=== PATIENT | male | born 1940 | race Caucasian/White ===

== ENCOUNTER → 2016-11-25 | Outpatient (CLI) | payer OTHER ==
[~2016-11-25] MED LIST: ASPEC325 PO; LOSA25TA18 PO; METO-217 PO; SIMV40TA4 PO
--- NOTE | 2016-12-02 08:56 | CODING QUERY MEDICAL NECESSITY ---
SUPPORTING DIAGNOSIS NEEDED A supporting diagnosis is required for the test/procedure performed on this patient in order for us to be reimbursed by the patient's insurance. Please provide a supporting diagnosis for the following test/procedure listed below next to the test name along with your signature. *If there is no additional diagnosis for this patient that would support the following test/procedure please document that below next to the test/procedure. Test(s)/Procedure(s) that require a supporting diagnosis: DOS 11/25 * PSA DIAGNOSIS: Provider Signature: Date: Thank you Elisabet Pineda Health Information Management Once completed, please kindly fax back to [phone] For questions please call [phone]
== END | disposition home or self-care (01) ==
LOC: C.LABBFT 10:32
PROVIDERS: ATTEND Internal Medicine
DX: N52.9 Male erectile dysfunction, unspecified (principal); R97.20 Elevated prostate specific antigen [PSA]

== ENCOUNTER → 2017-06-01 | Outpatient (CLI) | payer OTHER ==
[2017-06-01 12:12] LABS: BASO % 0.4 %; BASO ABS # 0.03 K/uL (0-0.2); COMPLETE YES; EOS % 4.6 %; HEMATOCRIT 44.1 % (42-52); IG% 0.6 %; LYMPH % 28.1 %; LYMPH ABS # 1.94 K/uL (1.2-3.4); MEAN CELL VOLUME 96.1 fL (80-100); MEAN CORPUSCULAR HEMOGLOBIN 31.6 pg (25-34); MEAN CORPUSCULAR HGB CONC 32.9 g/dl (32-36); MEAN PLATELET VOLUME 9.8 fL (7.4-10.4); MONO % 5.9 %; NEUT % 60.4 %; PLATELET COUNT 240 K/uL (130-400); RED BLOOD COUNT 4.59 M/uL (4.7-6.1); WHITE BLOOD COUNT 6.91 K/uL (4.8-10.8)
[2017-06-01 12:22] LABS: ALT/SGPT 31 U/L (12-78); BLOOD UREA NITROGEN 18 mg/dl (7-18); BUN/CREATININE RATIO 17.5 (10-20); CARBON DIOXIDE 25 mmol/L (21-32); CHLORIDE 106 mmol/L (98-107); CHOLESTEROL 134 mg/dl (0-200); GLUCOSE 97 mg/dl (70-99); SODIUM 140 mmol/L (136-145); TRIGLYCERIDES 148 mg/dl (0-150); VERY LOW DENSITY LIPOPROT CALC 30 mg/dl
[2017-06-01 12:27] LABS: ALB/GLOB RATIO 1.1 (0.9-2); ALKALINE PHOSPHATASE 91 U/L (45-117); AST/SGOT 21 U/L (15-37); CHOLESTEROL/HDL RATIO 3.5; HDL CHOLESTEROL 38 mg/dl; LDL CHOLESTEROL CALCULATED 66 mg/dl
[2017-06-01 12:32] LABS: URINE APPEARANCE CLEAR (CLEAR); URINE BILIRUBIN NEG (NEG); URINE COLOR YELLOW; URINE EPITHELIAL CELL AUTO 0-5 /lpf (0-5); URINE NITRITE NEG (NEG); URINE PH 7.5 (4.5-7.5); URINE SPECIFIC GRAVITY 1.018 (1.000-1.030); UROBILINOGEN NEG (NEG); ZZUR CULT IF INDIC CLEAN CATCH YES
[2017-06-01 12:36] LABS: MANUAL MICROSCOPIC REQUIRED? NO; REVIEW REQ? NO
== END | disposition home or self-care (01) ==
LOC: C.LABBFT 08:12
PROVIDERS: ATTEND Internal Medicine
DX: I48.0 Paroxysmal atrial fibrillation (principal); R97.20 Elevated prostate specific antigen [PSA]; E78.5 Hyperlipidemia, unspecified

== ENCOUNTER → 2017-06-09 | Outpatient (CLI) | payer OTHER ==
--- NOTE | 2017-06-09 12:58 | DIAGNOSTIC IMAGING REPORT ---
VENOUS DOPP LOWER EXT UNILAT HISTORY: I83.899 Varicose veins with complications TECHNIQUE: Multiple real-time sonographic images of the deep venous structures of the lower extremities were obtained assessing chowdhury scale, color Doppler flow and spectral waveform appearance. FINDINGS: LEFT LOWER EXTREMITY: The common femoral, profunda femoral, femoral, popliteal and greater saphenous veins demonstrated complete compressibility with external transducer pressure. The posterior tibial and peroneal veins demonstrate complete compressibility with external transducer pressure. Echogenic occlusive thrombus noted within a distended superficial varicosity posterior to the knee with distended vessel measuring up to 0.5 cm. Patent varicosities are noted both superior and inferior to the knee. IMPRESSION: 1. No sonographic evidence of deep venous thrombosis. 2. Occlusive superficial venous thrombosis within varicosities posterior to the knee. The above report was generated using voice recognition software. It may contain grammatical, syntax or spelling errors. Electronically signed by: Kyree Cruz M.D. 06/09/2017 12:57 PM Dictated Date/Time: 06/09/2017 12:53 PM
== END | disposition home or self-care (01) ==
LOC: C.ULTR 12:11
PROVIDERS: ATTEND Internal Medicine
DX: I83.899 Varicose veins of unspecified lower extremity with other complications (principal); I82.812 Embolism and thrombosis of superficial veins of left lower extremity

== ENCOUNTER → 2017-11-30 | Outpatient (CLI) | payer OTHER | END | disposition home or self-care (01) | LOC: C.LABBFT 08:47 | PROVIDERS: ATTEND Urology | DX: R97.20 Elevated prostate specific antigen [PSA] (principal) ==

== ENCOUNTER → 2018-02-22 | Outpatient (CLI) | payer OTHER | END | disposition home or self-care (01) | LOC: C.LABSPEC 07:59 | PROVIDERS: ATTEND Internal Medicine | DX: R19.7 Diarrhea, unspecified (principal) ==

== ENCOUNTER → 2018-02-25 | Outpatient (CLI) | payer OTHER | END | disposition home or self-care (01) | LOC: C.LABBFT 09:24 | PROVIDERS: ATTEND Internal Medicine | DX: R19.7 Diarrhea, unspecified (principal) ==

== ENCOUNTER → 2018-03-09 | Outpatient (CLI) | payer OTHER ==
[~2018-03-09] MED LIST changes: +ASPI325T39 PO; +FLM4 PO
== END | disposition home or self-care (01) ==
LOC: C.CPL 09:03
PROVIDERS: ATTEND Surgery
DX: K40.90 Unilateral inguinal hernia, without obstruction or gangrene, not specified as recurrent (principal)

== ENCOUNTER → 2018-03-15 | Outpatient (CLI) | payer OTHER ==
[~2018-03-15] MED LIST changes: -ASPEC325 PO
[2018-03-15 12:15] LABS: BASO % 0.3 %; BASO ABS # 0.02 K/uL (0-0.2); EOS % 3.6 %; EOS ABS # 0.21 K/uL (0-0.5); HEMATOCRIT 42.3 % (42-52); HEMOGLOBIN 14.6 g/dL (14.0-18.0); IG# 0.05 K/uL (0.00-0.02); LYMPH % 26.7 %; LYMPH ABS # 1.55 K/uL (1.2-3.4); MEAN CELL VOLUME 96.4 fL (80-100); MEAN CORPUSCULAR HEMOGLOBIN 33.3 pg (25-34); MEAN CORPUSCULAR HGB CONC 34.5 g/dl (32-36); MONO % 6.5 %; MONO ABS # 0.38 K/uL (0.11-0.59); PLATELET COUNT 221 K/uL (130-400); RED CELL DISTRIBUTION WIDTH CV 13.2 % (11.5-14.5); RED CELL DISTRIBUTION WIDTH SD 46.5 fL (36.4-46.3); WHITE BLOOD COUNT 5.81 K/uL (4.8-10.8)
[2018-03-15 12:29] LABS: BLOOD UREA NITROGEN 18 mg/dl (7-18); CALCIUM 8.8 mg/dl (8.5-10.1); CARBON DIOXIDE 25 mmol/L (21-32); CREATININE 0.98 mg/dl (0.60-1.40); GLUCOSE 96 mg/dl (70-99); POTASSIUM 3.9 mmol/L (3.5-5.1); SODIUM 138 mmol/L (136-145)
== END | disposition home or self-care (01) ==
LOC: C.LABBFT 08:30
PROVIDERS: ATTEND Surgery
DX: Z01.812 Encounter for preprocedural laboratory examination (principal); K40.90 Unilateral inguinal hernia, without obstruction or gangrene, not specified as recurrent

== ENCOUNTER → 2018-03-29 | Day surgery (SDC) | payer OTHER ==
[2018-03-14 09:02] VITALS: Ht 188 cm; Wt 102.3 kg
[~2018-03-29] VITALS: Ht 188 cm; Wt 102.3 kg
[~2018-03-29] MED LIST changes: +ATROPINE SULFATE 0.1 MG/ML 5ML SYR IV PRN; +BUPIVACAINE 0.5 % 5 MG/1 ML MPF 30ML VIAL ONE; +CEFAZOLIN 2000MG IV PUSH 15 ML IV SCH; +CEFAZOLIN SOD 1 GM VIAL ONE; +CEPH500C2 PO; +DEXAMETHASONE SOD INJ 4 MG/ML VIAL ONE; +EpHEDrine SULFATE 50MG/5ML SYR ONE; +EpHEDrine SULFATE INJ 50 MG/ML AMP IV PRN; +EpHEDrine SULFATE INJ 50 MG/ML AMP ONE; +FENTANYL CITRATE INJ 50 MCG/1 ML 2 ML VIAL IV PRN; +FENTANYL CITRATE INJ 50 MCG/1 ML 2 ML VIAL ONE; +HYDR-5688 PO; +HYDROCODONE/ACETAMIN 5/325MG TAB PO PRN; +KETOROLAC TROMETHAMINE 30 MG/ML VIAL ONE; +LACTATED RINGER'S 1000ML 1,000 ML IV SCH; +LIDOCAINE HCL 1% 20 ML VIAL ONE; +LIDOCAINE HCL 2% 2 ML VIAL (20MG/ML) ONE; +MIDAZOLAM HCL 1 MG/ML 2ML VIAL ONE; +ONDANSETRON INJ 2 MG/ML 2 ML VIAL IV PRN; +ONDANSETRON INJ 2 MG/ML 2 ML VIAL ONE; +PHENYLEPHRINE HCL INJ 10 MG/ML VIAL ONE; +PROPOFOL IV EMULSION 10 MG/ML 20 ML VIAL ONE; +SODIUM CHLORIDE 0.9% 1000ML 1,000 ML IV SCH; +SODIUM CHLORIDE 0.9% INJ 10 ML VIAL ONE
--- NOTE | 2018-03-29 07:40 | History & Physical Bridge - SC ---
H&P Re-Evaluation Bridge Note: I have examined the patient, reviewed the History & Physical and in the interval since the performance of the History & Physical I have noted the following changes of clinical significance: No changes noted
--- NOTE | 2018-03-29 07:48 | Discharge Instructions-SurgCtr ---
Discharge Instructions Date of Service March 29, 2018. Visit Reason for Visit: Right Inguinal Hernia Discharge Discharge Diagnosis / Problem: Rt inguinal hernia Discharge Goals Goal(s): Decrease discomfort, Improve function, Improve disease control Medications Stopped Medications Name(s): Aspirin 325mg stopped 03/21 Activity Recommendations Activity Limitations: as noted below Lifting Limitations: no more than 25 pounds (for 4 weeks) Exercise/Sports Limitations: until after follow-up appointment May Resume Sexual Activity: when tolerated Shower/Bathe: keep incision dry (may shower over incision in 2 days- 03/31) Driving or Machine Use: 4-5 days Anesthesia . Post Anesthesia Instructions: If you have had General Anesthesia or IV Sedation: * Do not drive today. * Resume driving when surgeon permits. * Do not make important decisions or sign legal documents today. * Call surgeon for: 1. Temperature elevations greater than 101 degrees F. 2. Uncontrollable pain. 3. Excessive bleeding. 4. Persistent nausea and vomiting. 5. Medication intolerance (nausea, vomiting or rash). * For nausea and vomiting use only clear liquids such as: tea, soda, bouillon until nausea subsides, then gradually increase diet as tolerated. * If you have any concerns or questions, call your surgeon's office. If physician is unavailable and it is an emergency, call 911 or go to the nearest emergency room. . Instructions / Follow-Up Instructions / Follow-Up SPECIAL CARE INSTRUCTIONS: * Cover incisions and change daily for comfort/drainage. * Leave steri strips in place Avoid constipation- may use Senokot S and Milk of magnesia twice daily as directed on the package * May use ibuprofen for pain as tolerated. * Expect some swelling and bruising. Call your doctor if: * Temperature above 101 degrees * Pain not relieved by pain medicine ordered * There is increased drainage or redness from any incision * You have any unanswered questions or concerns [phone]. FOLLOW UP VISIT: If not already scheduled, please call the office for a follow-up visit. for next week- some suture removal OFFICE PHONE NUMBER: Dr. Smith Office Diet Recommendations Home Diet: resume previous diet Pending Studies Studies pending at discharge: no Medical Emergencies . Who to Call and When: Medical Emergencies: If at any time you feel your situation is an emergency, please call 911 immediately. . Non-Emergent Contact Non-Emergency issues call your: Primary Care Provider, Surgeon . . "Provider Documentation" section prepared by Isaac Smith. .
[2018-03-29] MEDS: SODIUM CHLORIDE 0.9% INJ 10 ML VIAL ONE ×2 (09:25→09:26)
--- NOTE | 2018-03-29 09:28 | [facility] Operative Report ---
Operative Report Operative Date March 29, 2018. Pre-Operative Diagnosis Right Inguinal hernia Post-Operative Diagnosis Same as pre-op, indirect defect, lipoma Procedure(s) Performed Right Open Inguinal Hernia Repair with Mesh Surgeon Cancer Registry Coordinator Surgeon(s) None Estimated Blood Loss 10cc Findings see above Specimens None Anesthesia Type General Complication(s) none Disposition Recovery Room / PACU I attest to the content of the Intraoperative Record and any orders documented therein. Any exceptions are noted below.
--- NOTE | 2018-03-29 09:57 | OPERATIVE REPORT ---
DATE OF OPERATION: 03/29/2018 NAME OF OPERATION: Open right inguinal hernia repair. PREOPERATIVE DIAGNOSIS: Right inguinal hernia. POSTOPERATIVE DIAGNOSIS: Same with indirect defect and lipoma. STAFF SURGEON: Dr. Smith. ANESTHESIA: General. PROCEDURE: The patient was brought in the operating room and placed on the operating table in supine position. His lower abdomen was prepped and draped in usual fashion. Skin and subcutaneous tissue on the right side were anesthetized using 0.5% plain Marcaine. Incision made parallel to the inguinal ligament. Dissection was carried down to the external oblique fibers incised along their length to the external ring. Cord structures were mobilized. The patient had an indirect hernia sac and relatively large lipoma, which were dissected away from the cord structures and reduced. The internal ring was then reinforced using a mesh plug, secured to surrounding tissue using 2-0 Ethibond suture, then a mesh patch placed into the floor of the canal around the cord structures secured to surrounding tissue using 2-0 Ethibond suture. External oblique fibers then closed over the mesh around the cord structures using 2-0 Ethibond suture. The site was irrigated and anesthetized using 0.5% plain Marcaine and then the subcutaneous tissue reapproximated using 2-0 plain suture and the skin reapproximated using 4-0 nylon suture and Steri-Strips. Dressing applied and patient transferred to recovery room in stable condition. I attest to the content of the Intraoperative Record and any orders documented therein. Any exception s are noted below.
[2018-03-29 10:15] VITALS: TEMP 36.4
[2018-03-29 10:42] VITALS: BP 140/72; PULSE 71; O2SAT 96
--- NOTE | 2018-03-29 11:06 | Anesthesia Progress Nt - [facility] ---
Anesthesia Post Op Note Date & Time March 29, 2018 at 11:06 Vital Signs Pain Intensity: 0 Vital Signs Past 12 Hours Date Time Temp Pulse Resp B/P (MAP) Pulse Ox O2 Delivery O2 Flow Rate FiO2 03/29/18 10:42 71 16 140/72 (94) 96 Room Air 03/29/18 10:15 36.4 77 16 133/71 (91) 95 Room Air 03/29/18 10:06 36.7 76 12 130/59 96 Room Air 03/29/18 10:05 130/59 03/29/18 10:04 82 22 03/29/18 10:04 82 22 95 03/29/18 10:00 135/59 03/29/18 09:59 79 16 03/29/18 09:59 78 16 99 03/29/18 09:56 146/73 03/29/18 09:55 125/53 03/29/18 09:54 75 12 99 03/29/18 09:54 76 12 03/29/18 09:51 138/68 03/29/18 09:49 77 0 99 03/29/18 09:49 76 0 03/29/18 09:48 75 6 98 03/29/18 09:48 76 6 03/29/18 09:45 145/75 03/29/18 09:43 80 13 98 03/29/18 09:43 80 13 03/29/18 09:40 148/84 03/29/18 09:39 151/70 03/29/18 09:38 95 03/29/18 09:38 95 94 03/29/18 09:38 36.3 85 16 151/70 98 Diffusion Mask 6 03/29/18 07:14 36.5 62 16 151/68 (95) 97 Room Air Notes Mental Status: alert / awake / arousable, participated in evaluation Pt Amnestic to Procedure: Yes Nausea / Vomiting: adequately controlled Pain: adequately controlled Airway Patency, RR, SpO2: stable & adequate BP & HR: stable & adequate Hydration State: stable & adequate Anesthetic Complications: no major complications apparent
== END | disposition home or self-care (01) ==
LOC: X.SURG 06:33
PROVIDERS: ATTEND Surgery
DX: K40.90 Unilateral inguinal hernia, without obstruction or gangrene, not specified as recurrent (principal); D17.6 Benign lipomatous neoplasm of spermatic cord; I48.0 Paroxysmal atrial fibrillation; K21.9 Gastro-esophageal reflux disease without esophagitis; I10 Essential (primary) hypertension; E78.5 Hyperlipidemia, unspecified; N40.1 Benign prostatic hyperplasia with lower urinary tract symptoms; N13.8 Other obstructive and reflux uropathy; Z86.19 Personal history of other infectious and parasitic diseases; Z87.891 Personal history of nicotine dependence; Z79.82 Long term (current) use of aspirin; Z80.0 Family history of malignant neoplasm of digestive organs; Z83.3 Family history of diabetes mellitus

== ENCOUNTER → 2018-06-21 | Outpatient (CLI) | payer OTHER ==
[~2018-06-21] MED LIST changes: -ATROPINE SULFATE 0.1 MG/ML 5ML SYR IV PRN; -BUPIVACAINE 0.5 % 5 MG/1 ML MPF 30ML VIAL ONE; -CEFAZOLIN 2000MG IV PUSH 15 ML IV SCH; -CEFAZOLIN SOD 1 GM VIAL ONE; -DEXAMETHASONE SOD INJ 4 MG/ML VIAL ONE; -EpHEDrine SULFATE 50MG/5ML SYR ONE; -EpHEDrine SULFATE INJ 50 MG/ML AMP IV PRN; -EpHEDrine SULFATE INJ 50 MG/ML AMP ONE; -FENTANYL CITRATE INJ 50 MCG/1 ML 2 ML VIAL IV PRN; -FENTANYL CITRATE INJ 50 MCG/1 ML 2 ML VIAL ONE; -HYDROCODONE/ACETAMIN 5/325MG TAB PO PRN; -KETOROLAC TROMETHAMINE 30 MG/ML VIAL ONE; -LACTATED RINGER'S 1000ML 1,000 ML IV SCH; -LIDOCAINE HCL 1% 20 ML VIAL ONE; -LIDOCAINE HCL 2% 2 ML VIAL (20MG/ML) ONE; -MIDAZOLAM HCL 1 MG/ML 2ML VIAL ONE; -ONDANSETRON INJ 2 MG/ML 2 ML VIAL IV PRN; -ONDANSETRON INJ 2 MG/ML 2 ML VIAL ONE; -PHENYLEPHRINE HCL INJ 10 MG/ML VIAL ONE; -PROPOFOL IV EMULSION 10 MG/ML 20 ML VIAL ONE; -SODIUM CHLORIDE 0.9% 1000ML 1,000 ML IV SCH; -SODIUM CHLORIDE 0.9% INJ 10 ML VIAL ONE
[2018-06-21 12:33] LABS: BASO % 0.4 %; BASO ABS # 0.03 K/uL (0-0.2); EOS % 4.5 %; EOS ABS # 0.32 K/uL (0-0.5); HEMATOCRIT 43.6 % (42-52); HEMOGLOBIN 14.6 g/dL (14.0-18.0); IG# 0.03 K/uL (0.00-0.02); LYMPH % 29.4 %; LYMPH ABS # 2.07 K/uL (1.2-3.4); MEAN CELL VOLUME 96.9 fL (80-100); MEAN CORPUSCULAR HEMOGLOBIN 32.4 pg (25-34); MEAN CORPUSCULAR HGB CONC 33.5 g/dl (32-36); MEAN PLATELET VOLUME 10.2 fL (7.4-10.4); MONO ABS # 0.42 K/uL (0.11-0.59); NEUT % 59.3 %; NEUT ABS # 4.17 K/uL (1.4-6.5); PLATELET COUNT 214 K/uL (130-400); RED CELL DISTRIBUTION WIDTH CV 13.1 % (11.5-14.5); RED CELL DISTRIBUTION WIDTH SD 46.9 fL (36.4-46.3); WHITE BLOOD COUNT 7.04 K/uL (4.8-10.8)
[2018-06-21 12:58] LABS: ALBUMIN 3.7 gm/dl (3.4-5.0); ALKALINE PHOSPHATASE 93 U/L (45-117); ALT/SGPT 24 U/L (12-78); AST/SGOT 20 U/L (15-37); BLOOD UREA NITROGEN 17 mg/dl (7-18); CARBON DIOXIDE 25 mmol/L (21-32); CHOLESTEROL 158 mg/dl (0-200); CREATININE 1.03 mg/dl (0.60-1.40); GLUCOSE 97 mg/dl (70-99); LDL CHOLESTEROL CALCULATED 87 mg/dl; SODIUM 135 mmol/L (136-145); TOTAL PROTEIN 7.4 gm/dl (6.4-8.2)
== END | disposition home or self-care (01) ==
LOC: C.LABBFT 07:39
PROVIDERS: ATTEND Internal Medicine
DX: I48.0 Paroxysmal atrial fibrillation (principal); E78.5 Hyperlipidemia, unspecified

== ENCOUNTER 2022-09-27 13:45 | Inpatient (IN) ==
[2022-09-27 14:44] LABS: Basophils # (auto) 0.05 K/uL (0-0.2); Basophils % (auto) 0.3 %; Eosinophils # (auto) 0.04 K/uL (0-0.50); Eosinophils % (auto) 0.3 %; Hematocrit (blood only) 44.5 % (40.1-51.0); Hemoglobin 15.2 g/dl (14.0-18.0); Immature Granulocytes # (auto) 0.13 K/uL (0.00-0.02); Immature Granulocytes % (auto) 0.8 %; Lymphocytes # (auto) 1.06 K/uL (1.2-3.4); Lymphocytes % (auto) 6.7 %; Mean Corpuscular Hemoglobin 32.8 pg (25.0-34.0); Mean Corpuscular Hgb Conc 34.2 g/dL (32.0-36.0); Mean Corpuscular Volume 96.1 fL (80.0-100.0); Mean Platelet Volume 9.4 fL (9.4-12.4); Monocytes # (auto) 0.42 K/uL (0.24-0.82); Monocytes % (auto) 2.6 %; Neutrophils # (auto) 14.17 K/uL (1.4-6.5); Neutrophils % (auto) 89.3 %; Platelet Count 207 K/uL (130-400); RDW Coefficient of Variation 12.7 % (11.5-14.5); RDW Standard Deviation 45.1 fL (36.4-46.3); Red Blood Count 4.63 M/uL (4.63-6.08); White Blood Count 15.87 K/ul (4.8-10.8)
[2022-09-27 14:49] LABS: iSTAT Hemoglobin 15.3 g/dl (14.0-18.0); iSTAT Ionized Calcium 1.05 mmol/l (1.12-1.32); iSTAT Potassium 6.6 mmol/L (3.3-5.0)
[2022-09-27] MEDS ORDERED: fentaNYL citrate 100 MCG/2 ML VIAL IV STA (14:51)
--- NOTE | 2022-09-27 14:52 | Emergency Department Note ---
Impression & Plan Closed T9 spinal fracture, Paroxysmal atrial fibrillation, Fall ED Provider Note Provider: Kalpesh Yin MD DATE OF SERVICE: 09/27/2022 CHIEF COMPLAINT: Fall HISTORY OF PRESENT ILLNESS: Patient is a 82-year-old gentleman history of atrial fibrillation on Xarelto and type 2 diabetes presenting here today after a fall. He was fixing up his tree stand and was testing sitting on it on a table and slipped and fell backwards. Landed predominately in his right back but did strike his head briefly. Denies any loss of consciousness or significant headache or visual change. Denies dizziness. Denies vomiting but states he was little bit nauseous earlier. This happened several hours ago. Patient denies injuries of significance to his arms or legs may be a bit of slight pain initially in the right upper arm but this is resolved and he moves it well now. Patient states predominantly he came because he is having continued pain in his mid to right thoracic back region. Denies other abdominal pain. Denies new numbness or tingling. Took some Tylenol prior to arrival without significant improvement. REVIEW OF SYSTEMS: A total of 10 review of systems was obtained and negative except as stated above in the HPI. PAST MEDICAL HISTORY: As noted above MEDICATIONS: reviewed home medications SOCIAL HISTORY: PHYSICAL EXAM: GENERAL: alert and oriented in no acute distress on stretcher Head: normocephalic and atraumatic EYES: No injection, discharge or icterus. PERRL NECK: Trachea midline. Supple with no mid line tenderness ENT: Mucous membranes pink and moist. LUNGS: Airway patent. No retractions. Breath sounds clear with good air entry bilaterally. HEART: Regular rate and rhythm. No chest wall tenderness ABDOMEN: Soft and non-tender, without guarding or rebound. BACK: Slight mid thoracic midline tenderness with overlaying erythema but no step off, no SI joint tenderness. Tenderness over the right lateral ribs. Small slight erythema ritchie on Lumbar spine. SKIN: Acyanotic, warm, dry, without rashes EXTREMITIES: Without swelling, tenderness or deformity NEUROLOGICAL: No focal deficits. No aphasia. No facial droop or slurred speech. Normal strength and tone in the extremities. Sensation to gross touch normal. Ambulatory. EK bpm sinus rhythm with first-degree AV block and sinus arrhythmia. No acute ST segment elevation or depression with a QTC of 416. CONTINUOUS CARDIAC MONITORING: was ordered and showed a heart rate of 60s-80s bpm in sinus rhythm with sinus arrhythmia and 1st degree AV block PDMP was checked without noted issue. GCS 15. Patient's laboratory studies and imaging reviewed. Differential includes Fracture, dislocation, contusion, intra-abdominal, pneumothorax, intrathoracic, intracranial, neurologic, compartment syndrome, rhabdomyolysis, as well as other pathologies. IMPRESSION/MEDICAL DECISION MAKING: Patient on Xarelto did fall with predominantly right lateral thoracic back and actually chest pain. Question possible rib fractures. Breathing well. No other neurological deficits. Given his age however and the fall with anticoagulation will complete CT of the head, cervical spine, chest abdomen pelvis with contrast. Basic labs obtained. At this primary ACS. Does not reveal any significant presyncope or syncope type events prior to this and was more mechanical type fall. Given some pain medication here. CT of the head, cervical spine, and abdomen pelvis without significant traumatic injury noted. On the CT of the chest evidence of a T8-T9 fracture possibly involving all 3 columns is noted. Discussed this with Dr. Bain of the orthopedic spine service here. Patient again is well-appearing and neurologically intact. He recommended we admit the patient keep her on bedrest he will evaluate the patient and likely recommend brace. He would recommend holding Xarelto. Discussed with the patient and his at bedside. Hospitalist contacted. DIAGNOSIS: T8/9 fracture, fall, long-term anticoagulation, paroxysmal atrial fibrillation DISPOSITION: Hospitalist will evaluate Patient was agreeable with this plan. Past Med/Surg History Medical History Erectile dysfunction Fracture of distal fibula History of elevated prostate specific antigen (PSA) Recurrent colitis due to Clostridium difficile Surgical History H/O right inguinal hernia repair (2018) History of ankle surgery (2014) S/P cataract surgery (2017) Family History Mother Colorectal cancer Diabetes Father Colorectal cancer Denies family history of Ovarian cancer Prostate cancer Coronary heart disease Breast cancer Social History Smoking Status: Never smoker Age Quit Using Tobacco: 32; Second Hand Exposure: No; Hx Alcohol Use: No Hx Substance Use: No Preferred Language: [place] Leonean Communication Ability: Effective Alley Tender Required: No Beliefs That Will Affect Care: None marital status: Current Living Situation: Spouse current occupational status: retired current occupation: Banker Feels Safe at Home: Yes Safety Concerns: Feels Safe At This Time Childhood Exposure to Second-Hand Smoke: Yes caffeine: Yes Dental Care, Regularly: Yes Physical Activity Frequency: 3-4 Times per Week Seatbelt Use: always Allergies Allergies Allergy/AdvReac Type Severity Reaction Status Date / Time No Known Drug Allergies Allergy Unknown . Verified 09/27/22 16:37 Home Meds Home Medications Medication Instructions Recorded Confirmed atorvastatin 40 mg tablet (Lipitor) 40 mg PO HS 09/27/22 09/27/22 finasteride 5 mg tablet 5 mg PO HS 09/27/22 09/27/22 losartan 50 mg tablet 50 mg PO HS 09/27/22 09/27/22 metoprolol succinate 50 mg 50 mg PO HS 09/27/22 09/27/22 tablet,extended release 24 hr rivaroxaban 20 mg tablet (Xarelto) 20 mg PO QPM 09/27/22 09/27/22 tamsulosin 0.4 mg capsule (Flomax) 0.4 mg PO QPM 09/27/22 09/27/22 Results & Data (ED) Vital Signs Vital Signs - 24 hr 09/27/22 14:02 09/27/22 15:42 09/27/22 16:00 Temperature 36.9 C Temperature Source Temporal Artery Scan Pulse Rate 59 L 82 Pulse Rate from SpO2 Sensor 82 Pulse Rhythm Respiratory Rate 18 20 Respiratory Effort / Characteristics Non-Labored Spontaneous Respiratory Depth Normal Respiratory Pattern Regular Blood Pressure 115/42 L 171/86 H 170/80 H Blood Pressure Mean 66 114 110 Blood Pressure Position Sitting Pulse Oximetry 100 97 Oxygen Delivery Method Room Air Sepsis Recent Fever Within 48 Hours No Sepsis New/Unexplained Change in Mental Status N/A Sepsis Action Taken by Nursing No Action Required 09/27/22 16:00 09/27/22 16:30 09/27/22 16:30 Temperature Temperature Source Pulse Rate 91 H 97 H Pulse Rate from SpO2 Sensor 89 97 H Pulse Rhythm Respiratory Rate 16 17 Respiratory Effort / Characteristics Respiratory Depth Respiratory Pattern Blood Pressure 167/88 H Blood Pressure Mean 114 Blood Pressure Position Pulse Oximetry 98 97 Oxygen Delivery Method Sepsis Recent Fever Within 48 Hours Sepsis New/Unexplained Change in Mental Status Sepsis Action Taken by Nursing 09/27/22 17:00 09/27/22 17:30 09/27/22 13:45 Temperature Temperature Source Pulse Rate 91 H 103 H Pulse Rate from SpO2 Sensor 91 H 103 H Pulse Rhythm Respiratory Rate 20 19 16 Respiratory Effort / Characteristics Non-Labored Respiratory Depth Normal Respiratory Pattern Regular Blood Pressure Blood Pressure Mean Blood Pressure Position Pulse Oximetry 98 98 Oxygen Delivery Method Sepsis Recent Fever Within 48 Hours Sepsis New/Unexplained Change in Mental Status Sepsis Action Taken by Nursing 09/27/22 15:45 09/27/22 14:23 Temperature Temperature Source Pulse Rate 95 H Pulse Rate from SpO2 Sensor Pulse Rhythm Regular Respiratory Rate 19 19 Respiratory Effort / Characteristics Respiratory Depth Normal Respiratory Pattern Blood Pressure Blood Pressure Mean Blood Pressure Position Pulse Oximetry 98 Oxygen Delivery Method Room Air Sepsis Recent Fever Within 48 Hours Sepsis New/Unexplained Change in Mental Status Sepsis Action Taken by Nursing Laboratory Data Result diagrams: 09/27/22 Unknown 09/27/22 Unknown Lab Results 09/27/22 09/27/22 Range/Units 14:36 16:20 POC Hgb 15.3 (14.0-18.0) g/dl POC Hct 45 (42-52) % POC Sodium 134 L (135-144) mmol/L POC Potassium 6.6 H* (3.3-5.0) mmol/L POC Chloride 105 (101-112) mmol/L POC Total CO2 23 L (24-31) mmol/L POC Anion Gap 13.0 L (16-25) mmol/L POC BUN 23 H (7-18) mg/dl POC Creatinine 1.0 (0.6-1.3) mg/dl POC Glucose (other) 145 H (70-99) mg/dl POC Ioniz Calcium Antolin 1.05 L (1.12-1.32) mmol/l SARS-CoV-2, RNA, NAAT NEGATIVE (NEGATIVE) Administered Medications Discontinued Medications Fentanyl Citrate (Fentanyl Citrate 100 Mcg/2 Ml Vial) 50 mcg IV NOW STA Stop: 09/27/22 14:52 Last Admin: 09/27/22 15:06 Dose: 50 mcg Documented By: HALEY Ioversol (Optiray 350 100ml) 88 ml IV ONCE ONE Stop: 09/27/22 15:14 Last Admin: 09/27/22 15:17 Dose: 88 ml Documented By: EDK Imaging Data Radiologist's Impression: Abdomen/Pelvis CT 09/27/22 14:23 CT OF THE ABDOMEN AND PELVIS WITH CONTRAST CLINICAL HISTORY: fall on xarelto COMPARISON STUDY: None. TECHNIQUE: Following IV administration of 88 mL of Optiray, axial images of the abdomen and pelvis were obtained from the lung bases to the proximal femurs. Images were reviewed in the axial, sagittal, and coronal planes. IV contrast was administered without complication. Automated exposure control was utilized for the study. A dose lowering technique was utilized adhering to the principles of ALARA. FINDINGS: Please note that the chest CT will be reported separately. No hemoperitoneum or pneumoperitoneum is present with there is no evidence for traumatic injury to the liver, spleen, adrenal glands, kidneys or pancreas. A lateral segment hepatic cyst is present. There is a small hiatal hernia. A few small hypodense right renal lesions favor cysts. There is no hydronephrosis. There is no biliary or pancreatic ductal dilatation. The caliber and wall thickness of small and large bowel are normal. The appendix is normal. Prostate is mildly enlarged. Right inguinal hernia repair with mesh is noted. No acute lumbar spine, pelvic or hip fractures identified. There is no lymphadenopathy. There is no ascites. IMPRESSION: No acute traumatic findings within the abdomen or pelvis. ACT 112: Negative or not required by law. Electronically signed by: Ralf Tejeda M.D. 09/27/2022 3:[address] 09/27/22 14:23 CT OF THE CERVICAL SPINE WITHOUT CONTRAST CLINICAL HISTORY: fall COMPARISON STUDY: No previous studies for comparison. TECHNIQUE: Helical axial images of the cervical spine were obtained without IV contrast. Sagittal and coronal reconstructions were viewed. Automated exposure control was utilized for the study. A dose lowering technique was utilized adhering to the principles of ALARA. FINDINGS: Alignment of the cervical spine is anatomic. Vertebral body heights are maintained. No acute cervical spine fracture or subluxation is present. There is no prevertebral edema. Facet joints are intact. Severe multilevel facet arthrosis is present. There is moderate multilevel degenerative disc disease. IMPRESSION: No acute cervical spine fracture or subluxation. ACT 112: Negative or not required by law. Electronically signed by: Ralf Tejeda M.D. 09/27/2022 3:[address] 09/27/22 14:23 CT OF THE CHEST WITH IV CONTRAST CLINICAL HISTORY: fall, right chest/back pain COMPARISON STUDY: Chest radiograph November 09, 2014. TECHNIQUE: Following IV administration of 88 mL of Optiray, helical axial images of the chest were obtained. Sagittal and coronal reconstructions were viewed as well as maximal intensity projections on an independent 3-D workstation. Automated exposure control was utilized for the study. A dose lowering technique was utilized adhering to the principles of ALARA. FINDINGS: There is no evidence for traumatic injury to the thoracic aorta. No mediastinal hematoma is present. Note is made of moderate cardiomegaly. There is no pericardial effusion. No enlarged thoracic lymph nodes are present. There is a small hiatal hernia. No pneumothorax or pleural effusion is present. There is no pulmonary contusion. Lungs are suboptimally assessed due to respiratory motion. Ground glass opacities favor atelectasis. No acute rib fracture is identified. Note is made of an acute horizontal fracture which extends along the superior endplate of T9 with minimal loss of vertebral body height. Fracture through the adjacent anterior osteophytes. There is slight widening of the T8-T9 disc space. The fracture may extend through the right superior articulating facet at this level. Possible trace paravertebral edema. Moderate loss of height of the superior endplate of T7 is age indeterminate. There is slight loss of height of the inferior endplate of T4. Abdomen and pelvis CT will be reported separately. IMPRESSION: 1. No evidence for traumatic injury to the thoracic aorta. 2. No pneumothorax. 3. Acute horizontal fracture extending along the superior endplate of T9 and anterior osteophytes at the T8-T9 level. Mild widening of the T8-T9 disc space. Fracture may extend through the right superior articulating facet of T9. This may reflect a 3 column fracture and may be unstable. Spine surgical consultation is recommended. 4. Age indeterminate moderate compression fracture of the superior endplate of T7. No retropulsion. ACT 112: Negative or not required by law. Electronically signed by: Ralf Tejeda M.D. 09/27/2022 3:[address] 09/27/22 14:23 CT OF THE HEAD WITHOUT CONTRAST CLINICAL HISTORY: fall COMPARISON STUDY: Head CT February 16, 2019. TECHNIQUE: Helical axial images of the head were obtained without IV contrast. Automated exposure control was utilized for the study. A dose lowering technique was utilized adhering to the principles of ALARA. FINDINGS: No acute intracranial hemorrhage, midline shift or mass effect is present. The ventricular system is stable. The basal cisterns are patent. No extra-axial collections are present. There are no findings to suggest acute dural sinus thrombosis or acute territorial infarct. No acute calvarial fracture. 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 IMPRESSION: 1. No acute intracranial findings. 2. No acute calvarial fracture. ACT 112: Negative or not required by law. Electronically signed by: Ralf Tejeda M.D. 09/27/2022 3:24 PM Discharge Plan Visit Data Chief Complaint: Fall Stated Complaint: FALL,BACK PAIN ED Provider: Kalpesh Yin Discharge Problem: Closed T9 spinal fracture, Paroxysmal atrial fibrillation, Fall Patient Disposition: Being Evaluated by Hospitalist : Closed T9 spinal fracture Qualifiers: Encounter type: initial encounter Fracture morphology: unspecified fracture morphology Qualified Code(s): S22.079A - Unspecified fracture of T9-T10 vertebra, initial encounter for closed fracture Fall Qualifiers: Encounter type: initial encounter Qualified Code(s): W19.XXXA - Unspecified fall, initial encounter
[2022-09-27 14:58] LABS: INR 1.1 (0.9-1.1); Prothrombin Time 11.8 Seconds (9.0-12.0)
[2022-09-27 15:13] LABS: Albumin Globulin Ratio 1.4 (0.9-2); Albumin Level 4.3 gm/dl (3.4-5.0); BUN Creatinine Ratio 20.2 (10-20); Bilirubin,Total 0.9 mg/dl (0.2-1.0); Calcium 9.5 mg/dl (8.5-10.1); Creatinine Clr Calc Pharmacy 79.9 ml/min; Est GFR (African American) 88.4 ml/min; Est GFR (Non-African American) 76.3 ml/min; Globulin 3.1 gm/dl (2.5-4.0); Potassium 4.1 mmol/L (3.5-5.1); Total Protein 7.4 gm/dl (6.0-8.3)
[2022-09-27] MEDS ORDERED: OPTIRAY 350 100ml IV ONE (15:13)
[2022-09-27 15:17] LABS: Troponin I High Sensitivity 5.6 pg/ml (0-20)
--- NOTE | 2022-09-27 15:26 | CT Scan Report ---
CT OF THE HEAD WITHOUT CONTRAST CLINICAL HISTORY: fall COMPARISON STUDY: Head CT February 16, 2019. TECHNIQUE: Helical axial images of the head were obtained without IV contrast. Automated exposure con trol was utilized for the study. A dose lowering technique was utilized adhering to the principles o f ALARA. FINDINGS: No acute intracranial hemorrhage, midline shift or mass effect is present. The ventricular system is stable. The basal cisterns are patent. No extra-axial collections are present. There are no findings to suggest acute dural sinus thrombosis or acute territorial infarct. No acute calvarial fr acture. 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 IMPRESSION: 1. No acute intracranial findings. 2. No acute calvarial fracture. ACT 112: Negative or not required by law. Electronically signed by: Ralf Tejeda M.D. 09/27/2022 3:24 PM
--- NOTE | 2022-09-27 15:28 | CT Scan Report ---
CT OF THE CERVICAL SPINE WITHOUT CONTRAST CLINICAL HISTORY: fall COMPARISON STUDY: No previous studies for comparison. TECHNIQUE: Helical axial images of the cervical spine were obtained without IV contrast. Sagittal a nd coronal reconstructions were viewed. Automated exposure control was utilized for the study. A do se lowering technique was utilized adhering to the principles of ALARA. FINDINGS: Alignment of the cervical spine is anatomic. Vertebral body heights are maintained. No acut e cervical spine fracture or subluxation is present. There is no prevertebral edema. Facet joints are intact. Severe multilevel facet arthrosis is present. There is moderate multilevel degenerative dis c disease. IMPRESSION: No acute cervical spine fracture or subluxation. ACT 112: Negative or not required by law. Electronically signed by: Ralf Tejeda M.D. 09/27/2022 3:26 PM
--- NOTE | 2022-09-27 15:42 | CT Scan Report ---
CT OF THE CHEST WITH IV CONTRAST CLINICAL HISTORY: fall, right chest/back pain COMPARISON STUDY: Chest radiograph November 09, 2014. TECHNIQUE: Following IV administration of 88 mL of Optiray, helical axial images of the chest were o btained. Sagittal and coronal reconstructions were viewed as well as maximal intensity projections o n an independent 3-D workstation. Automated exposure control was utilized for the study. A dose low ering technique was utilized adhering to the principles of ALARA. FINDINGS: There is no evidence for traumatic injury to the thoracic aorta. No mediastinal hematoma i s present. Note is made of moderate cardiomegaly. There is no pericardial effusion. No enlarged thora cic lymph nodes are present. There is a small hiatal hernia. No pneumothorax or pleural effusion is p resent. There is no pulmonary contusion. Lungs are suboptimally assessed due to respiratory motion. G round glass opacities favor atelectasis. No acute rib fracture is identified. Note is made of an acut e horizontal fracture which extends along the superior endplate of T9 with minimal loss of vertebral body height. Fracture through the adjacent anterior osteophytes. There is slight widening of the T8-T 9 disc space. The fracture may extend through the right superior articulating facet at this level. Po ssible trace paravertebral edema. Moderate loss of height of the superior endplate of T7 is age indet erminate. There is slight loss of height of the inferior endplate of T4. Abdomen and pelvis CT will b e reported separately. IMPRESSION: 1. No evidence for traumatic injury to the thoracic aorta. 2. No pneumothorax. 3. Acute horizontal fracture extending along the superior endplate of T9 and anterior osteophytes at the T8-T9 level. Mild widening of the T8-T9 disc space. Fracture may extend through the right superio r articulating facet of T9. This may reflect a 3 column fracture and may be unstable. Spine surgical consultation is recommended. 4. Age indeterminate moderate compression fracture of the superior endplate of T7. No retropulsion. ACT 112: Negative or not required by law. Electronically signed by: Ralf Tejeda M.D. 09/27/2022 3:40 PM
--- NOTE | 2022-09-27 15:50 | CT Scan Report ---
CT OF THE ABDOMEN AND PELVIS WITH CONTRAST CLINICAL HISTORY: fall on xarelto COMPARISON STUDY: None. TECHNIQUE: Following IV administration of 88 mL of Optiray, axial images of the abdomen and pelvis we re obtained from the lung bases to the proximal femurs. Images were reviewed in the axial, sagittal, and coronal planes. IV contrast was administered without complication. Automated exposure control wa s utilized for the study. A dose lowering technique was utilized adhering to the principles of ALARA . FINDINGS: Please note that the chest CT will be reported separately. No hemoperitoneum or pneumoperit oneum is present with there is no evidence for traumatic injury to the liver, spleen, adrenal glands, kidneys or pancreas. A lateral segment hepatic cyst is present. There is a small hiatal hernia. A fe w small hypodense right renal lesions favor cysts. There is no hydronephrosis. There is no biliary or pancreatic ductal dilatation. The caliber and wall thickness of small and large bowel are normal. Th e appendix is normal. Prostate is mildly enlarged. Right inguinal hernia repair with mesh is noted. N o acute lumbar spine, pelvic or hip fractures identified. There is no lymphadenopathy. There is no as cites. IMPRESSION: No acute traumatic findings within the abdomen or pelvis. ACT 112: Negative or not required by law. Electronically signed by: Ralf Tejeda M.D. 09/27/2022 3:47 PM
--- NOTE | 2022-09-27 16:41 | History & Physical Report ---
Date of Service September 27, 2022 Assessment & Plan (1) Closed T9 spinal fracture: Plan: Admit patient Ok for heart healthy diet for dinner and then NPO after midnight until evaluated by ortho in the AM Strict bed rest IVFs after midnight when NPO Check routine AM labs (2) Fall: Plan: see above (3) Paroxysmal atrial fibrillation: Plan: Xarelto held until evaluated by ortho (4) Hypertension: Plan: continue home medications (5) Benign prostatic hyperplasia with urinary obstruction: Plan: continue home medications (6) Hyperlipidemia: Plan: continue home medications History of Present Illness Chief Complaint: Fall Primary Care Provider: Declan Linder MD This patient is a 82 year old male with a past medical history of HTN, dyslipidemia, BPH and paroxsymal A Fib s/p ablation in April 2022 on Xarelto who presented to [facility] ED today s/p a fall and back pain and was found to have a fracture of T8/9. Patient states earlier today he was in his shop and fi darrell the seat of his tree stand. He tells me that he repaired the seat and then was trying to test out the seat. The repaired seat was on a platform that was about 2 feet above the ground and when he sat upon the seat it was unstable and he fell backwards and hit his thoracic area of his back onto his work bench. He denies any LOC. He states that he layed on the ground for about 30 minutes until he was able to calm himself down and get over to a chair to sit. He then was able to get back into the house and tell his what had happened. He states that his and son convinced him to come to the ER for evaluation. He denies any chest pain, SOB, vomiting, head injury, paresthesias, anesthesias, bowel or bladder problems or dysfunction. He does admit to pain in the thoracic area wh en he hit his back and also some nausea when he fell but states the nausea resolved and he is just hungry now and wants something to eat. Patient tells me that he tried taking some tylenol prior to coming to the ER without any relief. He denies any pain with breathing bu does states that he has back discomfort with moving around. Patient was evaluated in the ER and had CT of the head, cervical spine, abdomen and pelvis pelvis without significant traumatic injury noted. On the CT of the chest evidence of a T8-T9 fracture possibly involving all 3 columns was noted. The ER physician discussed the patient and CT with Dr. Bain of the orthopedic spine service here who recommended we admit the patient keep her on bedrest he will evaluate the patient and likely recommend brace. He would recommend holding Xarelto. We will admit patient and give him a heart healthy diet for dinner and then NPO after midnight until seen by ortho. He will be on strict bedrest, IVFs after midnight He is able to take the rest of his po home medications besides the Xareto. Allergies Allergy/AdvReac Type Severity Reaction Status Date / Time No Known Drug Allergies Allergy Unknown . Verified 09/27/22 16:37 Home Medications Medication Instructions Recorded Confirmed Type atorvastatin 40 mg tablet (Lipitor) 40 mg PO HS 09/27/22 09/27/22 History finasteride 5 mg tablet 5 mg PO HS 09/27/22 09/27/22 History losartan 50 mg tablet 50 mg PO HS 09/27/22 09/27/22 History metoprolol succinate 50 mg 50 mg PO HS 09/27/22 09/27/22 History tablet,extended release 24 hr rivaroxaban 20 mg tablet (Xarelto) 20 mg PO QPM 09/27/22 09/27/22 History tamsulosin 0.4 mg capsule (Flomax) 0.4 mg PO QPM 09/27/22 09/27/22 History Past Med/Surg History Medical History Erectile dysfunction Fracture of distal fibula History of elevated prostate specific antigen (PSA) Recurrent colitis due to Clostridium difficile Surgical History H/O right inguinal hernia repair (2018) History of ankle surgery (2014) S/P cataract surgery (2017) Family History Mother Colorectal cancer Diabetes Father Colorectal cancer Denies family history of Ovarian cancer Prostate cancer Coronary heart disease Breast cancer Social History Smoking Status: Never smoker Age Quit Using Tobacco: 32; Second Hand Exposure: No; Hx Alcohol Use: No Hx Substance Use: No Preferred Language: Cameroonian Communication Ability: Effective Machine Set Up Technician Required: No Beliefs That Will Affect Care: None marital status: Current Living Situation: Spouse current occupational status: retired current occupation: Banker Feels Safe at Home: Yes Childhood Exposure to Second-Hand Smoke: Yes caffeine: Yes Dental Care, Regularly: Yes Physical Activity Frequency: 3-4 Times per Week Seatbelt Use: always Assistive Devices: None Review of Systems Review of Systems: All ROS negative unless stated otherwise inthe HPI Physical Exam Constitutional: WD/WN, vitals as above Eyes: PERRL, conjunctivae normal, anicteric sclerae ENMT: external ear and nose normal, oropharynx normal Neck: trachea midline, no thyromegaly Respiratory: normal respiratory effort, lungs clear to auscultation Cardiovascular: Rate/Rhythm: regular rate and regular rhythm Extremities: no edema Gastrointestinal (Abdomen): normal bowel sounds, soft, nontender, no hepatosplenomegaly Musculoskeletal: Extremities: extremities normal to inspection slight tenderness to palpation over thoracic spine and mild tenderness to palpation of ribs, no step off appreciated Moves all extremities Did not assess spinal ROM secondary to known fracture Neurologic: patellar DTR's 2+ bilat, sensation intact and PERRL, EOMI, accommodation nl, no face palsy, no dysarthria Psychiatric: A+Ox3, euthymic affect Results & Data Results & Data ([facility]) Vital Signs (Past 12 Hours) Vital Signs Temp Pulse Resp BP Pulse Ox O2 Del Method 09/27/22 15:42 82 20 171/86 H 97 09/27/22 14:02 36.9 C 59 L 18 115/42 L 100 Room Air Laboratory Results Laboratory Results - last 24 hr 09/27/22 09/27/22 09/27/22 14:36 16:20 Unknown WBC 15.87 H RBC 4.63 Hgb 15.2 POC Hgb 15.3 Hct 44.5 POC Hct 45 MCV 96.1 MCH 32.8 MCHC 34.2 RDW Std Deviation 45.1 RDW Coeff of Roselia 12.7 Plt Count 207 MPV 9.4 Immature Gran % (Auto) 0.8 Neut % (Auto) 89.3 Lymph % (Auto) 6.7 Knox % (Auto) 2.6 Eos % (Auto) 0.3 Baso % (Auto) 0.3 Neut # (Auto) 14.17 H Lymph # (Auto) 1.06 L Knox # (Auto) 0.42 Eos # (Auto) 0.04 Baso # (Auto) 0.05 Immature Gran # (Auto) 0.13 H PT INR POC Sodium 134 L Sodium POC Potassium 6.6 H* Potassium POC Chloride 105 Chloride Carbon Dioxide POC Total CO2 23 L Anion Gap POC Anion Gap 13.0 L POC BUN 23 H BUN Creatinine POC Creatinine 1.0 Est Cr Clr Drug Dosing Est GFR ( Amer) Est GFR (Non-Af Amer) BUN/Creatinine Ratio Glucose POC Glucose (other) 145 H Calcium POC Ioniz Calcium Antolin 1.05 L Total Bilirubin AST ALT Alkaline Phosphatase Troponin I High Sens Total Protein Albumin Globulin Albumin/Globulin Ratio SARS-CoV-2, RNA, NAAT Pending 09/27/22 09/27/22 Unknown Unknown WBC RBC Hgb POC Hgb Hct POC Hct MCV MCH MCHC RDW Std Deviation RDW Coeff of Roselia Plt Count MPV Immature Gran % (Auto) Neut % (Auto) Lymph % (Auto) Knox % (Auto) Eos % (Auto) Baso % (Auto) Neut # (Auto) Lymph # (Auto) Knox # (Auto) Eos # (Auto) Baso # (Auto) Immature Gran # (Auto) PT 11.8 INR 1.1 POC Sodium Sodium 137 POC Potassium Potassium 4.1 POC Chloride Chloride 103 Carbon Dioxide 25 POC Total CO2 Anion Gap 9 POC Anion Gap POC BUN BUN 19 Creatinine 0.94 POC Creatinine Est Cr Clr Drug Dosing 79.9 Est GFR ( Amer) 88.4 Est GFR (Non-Af Amer) 76.3 BUN/Creatinine Ratio 20.2 H Glucose 143 H POC Glucose (other) Calcium 9.5 POC Ioniz Calcium Antolin Total Bilirubin 0.9 AST 22 ALT 21 Alkaline Phosphatase 93 Troponin I High Sens 5.6 Total Protein 7.4 Albumin 4.3 Globulin 3.1 Albumin/Globulin Ratio 1.4 SARS-CoV-2, RNA, NAAT Diagnostic Findings Abdomen/Pelvis CT 09/27/22 14:23 CT OF THE ABDOMEN AND PELVIS WITH CONTRAST CLINICAL HISTORY: fall on xarelto COMPARISON STUDY: None. TECHNIQUE: Following IV administration of 88 mL of Optiray, axial images of the abdomen and pelvis were obtained from the lung bases to the proximal femurs. Images were reviewed in the axial, sagittal, and coronal planes. IV contrast was administered without complication. Automated exposure control was utilized for the study. A dose lowering technique was utilized adhering to the principles of ALARA. FINDINGS: Please note that the chest CT will be reported separately. No hemoperitoneum or pneumoperitoneum is present with there is no evidence for traumatic injury to the liver, spleen, adrenal glands, kidneys or pancreas. A lateral segment hepatic cyst is present. There is a small hiatal hernia. A few small hypodense right renal lesions favor cysts. There is no hydronephrosis. There is no biliary or pancreatic ductal dilatation. The caliber and wall thickness of small and large bowel are normal. The appendix is normal. Prostate is mildly enlarged. Right inguinal hernia repair with mesh is noted. No acute lumbar spine, pelvic or hip fractures identified. There is no lymphadenopathy. There is no ascites. IMPRESSION: No acute traumatic findings within the abdomen or pelvis. ACT 112: Negative or not required by law. Electronically signed by: Ralf Tejeda M.D. 09/27/2022 3:[address] 09/27/22 14:23 CT OF THE CERVICAL SPINE WITHOUT CONTRAST CLINICAL HISTORY: fall COMPARISON STUDY: No previous studies for comparison. TECHNIQUE: Helical axial images of the cervical spine were obtained without IV contrast. Sagittal and coronal reconstructions were viewed. Automated exposure control was utilized for the study. A dose lowering technique was utilized adhering to the principles of ALARA. FINDINGS: Alignment of the cervical spine is anatomic. Vertebral body heights are maintained. No acute cervical spine fracture or subluxation is present. There is no prevertebral edema. Facet joints are intact. Severe multilevel facet arthrosis is present. There is moderate multilevel degenerative disc disease. IMPRESSION: No acute cervical spine fracture or subluxation. ACT 112: Negative or not required by law. Electronically signed by: Ralf Tejeda M.D. 09/27/2022 3:[address] 09/27/22 14:23 CT OF THE CHEST WITH IV CONTRAST CLINICAL HISTORY: fall, right chest/back pain COMPARISON STUDY: Chest radiograph November 09, 2014. TECHNIQUE: Following IV administration of 88 mL of Optiray, helical axial images of the chest were obtained. Sagittal and coronal reconstructions were viewed as well as maximal intensity projections on an independent 3-D workstation. Automated exposure control was utilized for the study. A dose lowering technique was utilized adhering to the principles of ALARA. FINDINGS: There is no evidence for traumatic injury to the thoracic aorta. No mediastinal hematoma is present. Note is made of moderate cardiomegaly. There is no pericardial effusion. No enlarged thoracic lymph nodes are present. There is a small hiatal hernia. No pneumothorax or pleural effusion is present. There is no pulmonary contusion. Lungs are suboptimally assessed due to respiratory motion. Ground glass opacities favor atelectasis. No acute rib fracture is identified. Note is made of an acute horizontal fracture which extends along the superior endplate of T9 with minimal loss of vertebral body height. Fracture through the adjacent anterior osteophytes. There is slight widening of the T8-T9 disc space. The fracture may extend through the right superior articulating facet at this level. Possible trace paravertebral edema. Moderate loss of height of the superior endplate of T7 is age indeterminate. There is slight loss of height of the inferior endplate of T4. Abdomen and pelvis CT will be reported separately. IMPRESSION: 1. No evidence for traumatic injury to the thoracic aorta. 2. No pneumothorax. 3. Acute horizontal fracture extending along the superior endplate of T9 and anterior osteophytes at the T8-T9 level. Mild widening of the T8-T9 disc space. Fracture may extend through the right superior articulating facet of T9. This may reflect a 3 column fracture and may be unstable. Spine surgical consultation is recommended. 4. Age indeterminate moderate compression fracture of the superior endplate of T7. No retropulsion. ACT 112: Negative or not required by law. Electronically signed by: Ralf Tejeda M.D. 09/27/2022 3:[address] 09/27/22 14:23 CT OF THE HEAD WITHOUT CONTRAST CLINICAL HISTORY: fall COMPARISON STUDY: Head CT February 16, 2019. TECHNIQUE: Helical axial images of the head were obtained without IV contrast. Automated exposure control was utilized for the study. A dose lowering technique was utilized adhering to the principles of ALARA. FINDINGS: No acute intracranial hemorrhage, midline shift or mass effect is present. The ventricular system is stable. The basal cisterns are patent. No extra-axial collections are present. There are no findings to suggest acute dural sinus thrombosis or acute territorial infarct. No acute calvarial fracture. 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 IMPRESSION: 1. No acute intracranial findings. 2. No acute calvarial fracture. ACT 112: Negative or not required by law. Electronically signed by: Ralf Tejeda M.D. 09/27/2022 3:24 PM Critical Care Results & Data Vital Signs (Past 12 Hours) Vital Signs Temp Pulse Resp BP Pulse Ox O2 Del Method 09/27/22 15:42 82 20 171/86 H 97 09/27/22 14:02 36.9 C 59 L 18 115/42 L 100 Room Air Lab & Micro Results (Past 24 Hours) No Data to Display No Data to Display No Data to Display Diagnostic Findings (Past 24 Hours) Abdomen/Pelvis CT 09/27/22 14:23 CT OF THE ABDOMEN AND PELVIS WITH CONTRAST CLINICAL HISTORY: fall on xarelto COMPARISON STUDY: None. TECHNIQUE: Following IV administration of 88 mL of Optiray, axial images of the abdomen and pelvis were obtained from the lung bases to the proximal femurs. Images were reviewed in the axial, sagittal, and coronal planes. IV contrast was administered without complication. Automated exposure control was utilized for the study. A dose lowering technique was utilized adhering to the principles of ALARA. FINDINGS: Please note that the chest CT will be reported separately. No hemoperitoneum or pneumoperitoneum is present with there is no evidence for traumatic injury to the liver, spleen, adrenal glands, kidneys or pancreas. A lateral segment hepatic cyst is present. There is a small hiatal hernia. A few small hypodense right renal lesions favor cysts. There is no hydronephrosis. There is no biliary or pancreatic ductal dilatation. The caliber and wall thickness of small and large bowel are normal. The appendix is normal. Prostate is mildly enlarged. Right inguinal hernia repair with mesh is noted. No acute lumbar spine, pelvic or hip fractures identified. There is no lymphadenopathy. There is no ascites. IMPRESSION: No acute traumatic findings within the abdomen or pelvis. ACT 112: Negative or not required by law. Electronically signed by: Ralf Tejeda M.D. 09/27/2022 3:[address] 09/27/22 14:23 CT OF THE CERVICAL SPINE WITHOUT CONTRAST CLINICAL HISTORY: fall COMPARISON STUDY: No previous studies for comparison. TECHNIQUE: Helical axial images of the cervical spine were obtained without IV contrast. Sagittal and coronal reconstructions were viewed. Automated exposure control was utilized for the study. A dose lowering technique was utilized adhering to the principles of ALARA. FINDINGS: Alignment of the cervical spine is anatomic. Vertebral body heights are maintained. No acute cervical spine fracture or subluxation is present. There is no prevertebral edema. Facet joints are intact. Severe multilevel facet arthrosis is present. There is moderate multilevel degenerative disc disease. IMPRESSION: No acute cervical spine fracture or subluxation. ACT 112: Negative or not required by law. Electronically signed by: Ralf Tejeda M.D. 09/27/2022 3:[address] 09/27/22 14:23 CT OF THE CHEST WITH IV CONTRAST CLINICAL HISTORY: fall, right chest/back pain COMPARISON STUDY: Chest radiograph November 09, 2014. TECHNIQUE: Following IV administration of 88 mL of Optiray, helical axial images of the chest were obtained. Sagittal and coronal reconstructions were viewed as well as maximal intensity projections on an independent 3-D workstation. Automated exposure control was utilized for the study. A dose lowering technique was utilized adhering to the principles of ALARA. FINDINGS: There is no evidence for traumatic injury to the thoracic aorta. No mediastinal hematoma is present. Note is made of moderate cardiomegaly. There is no pericardial effusion. No enlarged thoracic lymph nodes are present. There is a small hiatal hernia. No pneumothorax or pleural effusion is present. There is no pulmonary contusion. Lungs are suboptimally assessed due to respiratory motion. Ground glass opacities favor atelectasis. No acute rib fracture is iden tified. Note is made of an acute horizontal fracture which extends along the superior endplate of T9 with minimal loss of vertebral body height. Fracture through the adjacent anterior osteophytes. There is slight widening of the T8-T9 disc space. The fracture may extend through the right superior articulating facet at this level. Possible trace paravertebral edema. Moderate loss of height of the superior endplate of T7 is age indeterminate. There is slight loss of height of the inferior endplate of T4. Abdomen and pelvis CT will be reported separately. IMPRESSION: 1. No evidence for traumatic injury to the thoracic aorta. 2. No pneumothorax. 3. Acute horizontal fracture extending along the superior endplate of T9 and anterior osteophytes at the T8-T9 level. Mild widening of the T8-T9 disc space. Fracture may extend through the right superior articulating facet of T9. This may reflect a 3 column fracture and may be unstable. Spine surgical consultation is recommended. 4. Age indeterminate moderate compression fracture of the superior endplate of T7. No retropulsion. ACT 112: Negative or not required by law. Electronically signed by: Ralf Tejeda M.D. 09/27/2022 3:[address] 09/27/22 14:23 CT OF THE HEAD WITHOUT CONTRAST CLINICAL HISTORY: fall COMPARISON STUDY: Head CT February 16, 2019. TECHNIQUE: Helical axial images of the head were obtained without IV contrast. Automated exposure control was utilized for the study. A dose lowering technique was utilized adhering to the principles of ALARA. FINDINGS: No acute intracranial hemorrhage, midline shift or mass effect is present. The ventricular system is stable. The basal cisterns are patent. No extra-axial collections are present. There are no findings to suggest acute dural sinus thrombosis or acute territorial infarct. No acute calvarial fracture. 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 IMPRESSION: 1. No acute intracranial findings. 2. No acute calvarial fracture. ACT 112: Negative or not required by law. Electronically signed by: Ralf Tejeda M.D. 09/27/2022 3:24 PM RT Ventilator Mngmt (Last Documented) Ventilator Ordered Settings Respiratory Rate 20 09/27/22 15:42 Ventilator - PT Measurements Respiratory Rate 20 Code Status & VTE Plan Code Status Full Code VTE Prophylaxis Plan VTE Prophylaxis will be ordered: Yes Supervising Physician Co-Signing Physician Notes Patient seen and examined at bedside. During face to face encounter, I obtained a history and physical examination. I reviewed above note and agree with it. I discussed plan of care with patient and RONN Scott. Patient will be NPO after midnight for possible procedure due to his thoracic spinal fracture. Pain medicine ordered as above. PG Care Time/CCT Total # of Minutes Spent Total Time Spent: 40 Total Time Spent with Patient: Total time spent is greater than 50% in coordination of care (as documented) at patient's floor/unit and/or counseling patient: C[place] [address] Initial Inpt Care Lvl 3 Patient Type Established Medical Decision Making High Complexity Diagnoses Closed T9 spinal fracture S22.079A Encounter type: initial encounter Fracture morphology: unspecified fracture morphology Fall W19.XXXA Encounter type: initial encounter Paroxysmal atrial fibrillation I48.0 Hypertension I10 Benign prostatic hyperplasia with urinary obstruction N40.1; N13.8 Hyperlipidemia E78.5 Time Spent (min) 40 (1) Closed T9 spinal fracture Encounter type: initial encounter Fracture morphology: unspecified fracture morphology Qualified Code(s): S22.079A - Unspecified fracture of T9-T10 vertebra, initial encounter for closed fracture (2) Fall Encounter type: initial encounter Qualified Code(s): W19.XXXA - Unspecified fall, initial encounter
[2022-09-27] MEDS ORDERED: ACETAMINOPHEN 500 MG TAB PO PRN (19:30)
[2022-09-27] MEDS ORDERED: oxyCODONE HCL IR 5 MG TAB (IMMEDIATE RELEASE) PO PRN (19:30)
[2022-09-27] MEDS ORDERED: CALCIUM CARBONATE 500 MG CHEWABLE TAB PO ONE (20:16)
[2022-09-27] MEDS: ATORVASTATIN 40 MG TAB PO SCH (20:52)
[2022-09-27] MEDS: FINASTERIDE 5 MG TAB PO SCH (20:52)
[2022-09-27] MEDS: METOPROLOL SUCC 50MG EXT REL TAB PO SCH (20:52)
[2022-09-27] MEDS: TAMSULOSIN HCL 0.4 MG CAP PO SCH (20:52)
[2022-09-27] MEDS: LOSARTAN POTASSIUM 50 MG TAB PO SCH (20:52)
[2022-09-28] MEDS: SODIUM CHLORIDE 0.9% 1000ML 1,000 ML IV SCH ×2 (02:23→12:36)
[2022-09-28 05:25] LABS: Appearance Urine Clear (Clear); Bilirubin Urine Negative (Negative); Blood Urine Negative (Negative); Color Urine Yellow; Glucose Urine UA Negative (Negative); Ketones Urine Negative (Negative); Leukocyte Esterase Urine Negative (Negative); Nitrite Urine Negative (Negative); Protein Urine Negative (Negative); Specific Gravity Urine 1.027 (1.000-1.030); Urobilinogen Urine Negative (Negative)
[2022-09-28 07:34] LABS: Hemoglobin 13.5 g/dl (14.0-18.0); Mean Corpuscular Hemoglobin 32.8 pg (25.0-34.0); Mean Corpuscular Hgb Conc 34.6 g/dL (32.0-36.0); Mean Corpuscular Volume 94.9 fL (80.0-100.0); Mean Platelet Volume 9.2 fL (9.4-12.4); Platelet Count 190 K/uL (130-400); RDW Coefficient of Variation 12.8 % (11.5-14.5); RDW Standard Deviation 44.6 fL (36.4-46.3); Red Blood Count 4.11 M/uL (4.63-6.08); White Blood Count 9.45 K/ul (4.8-10.8)
[2022-09-28 08:02] LABS: Calcium 8.5 mg/dl (8.5-10.1); Creatinine Clr Calc Pharmacy 91.6 ml/min; Est GFR (African American) 97.3 ml/min; Est GFR (Non-African American) 83.9 ml/min; Magnesium 1.9 mg/dl (1.7-2.4); Potassium 3.8 mmol/L (3.5-5.1)
--- NOTE | 2022-09-28 09:57 | Electrocardiogram Report ---
Test Reason : Blood Pressure : / mmHG Vent. Rate : 068 BPM Atrial Rate : 068 BPM P-R Int : 230 ms QRS Dur : 094 ms QT Int : 392 ms P-R-T Axes : 050 118 018 degrees QTc Int : 416 ms Sinus rhythm with marked sinus arrhythmia with 1st degree A-V block Left posterior fascicular block Borderline Criteria for Old Inferior infarct Abnormal ECG When compared with ECG of 09-MAR-2018 09:15, Left posterior fascicular block is now Present Borderline Criteria for Inferior infarct is now Present Confirmed by Robb Santos ([id number]) on 09/28/2022 9:56:49 AM Referred By: REFERRED SELF Confirmed By:Robb Santos
[2022-09-28] MEDS: FINASTERIDE 5 MG TAB PO SCH (20:58)
[2022-09-28] MEDS: LOSARTAN POTASSIUM 50 MG TAB PO SCH (20:58)
[2022-09-28] MEDS: METOPROLOL SUCC 50MG EXT REL TAB PO SCH (20:58)
[2022-09-28] MEDS: TAMSULOSIN HCL 0.4 MG CAP PO SCH (20:58)
[2022-09-28] MEDS: ATORVASTATIN 40 MG TAB PO SCH (20:58)
--- NOTE | 2022-09-28 21:04 | Hospitalist Progress Note ---
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 Appears patient will be bedrest until brace has been completed. (2) Fall: Plan: see above (3) Paroxysmal atrial fibrillation: Plan: Xarelto held until evaluated by ortho (4) Hypertension: Plan: continue home medications (5) Benign prostatic hyperplasia with urinary obstruction: Plan: continue home medications (6) Hyperlipidemia: Plan: continue home medications Admission and Anticipated Discharge Date Admission Date: September 27, 2022 Subjective 82 yo male reports feeling well. He has no new symptoms. Review of Systems Review of Systems: All systems reviewed & are unremarkable except as noted in HPI & below Physical Exam Physical Exam: Constitutional: WD/WN, vitals as above Eyes: PERRL, conjunctivae normal, anicteric sclerae ENMT: external ear and nose normal, oropharynx normal Neck: trachea midline, no thyromegaly Respiratory: normal respiratory effort, lungs clear to auscultation Cardiovascular: Rate/Rhythm: regular rate and regular rhythm Extremities: no edema Gastrointestinal (Abdomen): normal bowel sounds, soft, nontender, no hepatosplenomegaly Musculoskeletal: Extremities: extremities normal to inspection slight t enderness to palpation over thoracic spine and mild tenderness to palpation of ribs, no step off appreciated Moves all extremities Did not assess spinal ROM secondary to known fracture Neurologic: patellar DTR's 2+ bilat, sensation intact and PERRL, EOMI, accommodation nl, no face palsy, no dysarthria Psychiatric: A+Ox3, euthymic affect Results & Data Results & Data ([facility]) Vital Signs (Past 12 Hours) Vital Signs Temp Pulse Pulse Resp BP Pulse Ox O2 Del Method 09/28/22 19:32 36.9 C 79 18 133/67 95 Room Air 09/28/22 15:32 71 09/28/22 15:52 36.7 C 78 18 141/65 H 95 Room Air 09/28/22 11:57 36.8 C 73 18 129/73 96 Room Air PG Care Time/CCT Total # of Minutes Spent Total Time Spent with Patient: Total time spent is greater than 50% in coordination of care (as documented) at patient's floor/unit and/or counseling patient: Coding Level of Care Code 79200 Subseq Hosp Care Lvl 2 Diagnoses Closed T9 spinal fracture S22.079A Encounter type: initial encounter Fracture morphology: unspecified fracture morphology Fall W19.XXXA Encounter type: initial encounter Paroxysmal atrial fibrillation I48.0 Hypertension I10 Benign prostatic hyperplasia with urinary obstruction N40.1; N13.8 Hyperlipidemia E78.5 Time Spent (min) 25 (1) Closed T9 spinal fracture Encounter type: initial encounter Fracture morphology: unspecified fracture morphology Qualified Code(s): S22.079A - Unspecified fracture of T9-T10 vertebra, initial encounter for closed fracture (2) Fall Encounter type: initial encounter Qualified Code(s): W19.XXXA - Unspecified fall, initial encounter
--- NOTE | 2022-09-29 08:12 | Orthopedic Consultation ---
Date of Consultation September 29, 2022 Assessment & Plan (1) Closed T9 spinal fracture: T9 fracture. Plan at this time wound to obtain more images of the thoracic CAT scan to assess the sagittal views. He will be fitted with a TLSO brace today. Once this is complete he may begin physical therapy. He is to wear the brace when out of bed at all times. Pending his progress today I am okay for him to discharge home. History of Present Illness Reason for Consultation: Thoracic fracture Attending Physician: Robert Camarillo History of Present Illness This a very pleasant 82-year-old male that is presents to the hospital after a fall at home. He was on his workbench working on a tree stand when he fell. He landed directly on his back. This morning he is comfortable. He denies any numbness or tingling in his legs. Denies any weakness. Is not been out of bed. Allergies Allergy/AdvReac Type Severity Reaction Status Date / Time No Known Drug Allergies Allergy Unknown . Verified 09/27/22 16:37 Home Medications Medication Instructions Recorded Confirmed Type atorvastatin 40 mg tablet (Lipitor) 40 mg PO HS 09/27/22 09/27/22 History finasteride 5 mg tablet 5 mg PO HS 09/27/22 09/27/22 History losartan 50 mg tablet 50 mg PO HS 09/27/22 09/27/22 History metoprolol succinate 50 mg 50 mg PO HS 09/27/22 09/27/22 History tablet,extended release 24 hr rivaroxaban 20 mg tablet (Xarelto) 20 mg PO QPM 09/27/22 09/27/22 History tamsulosin 0.4 mg capsule (Flomax) 0.4 mg PO QPM 09/27/22 09/27/22 History Patient History Medical History Erectile dysfunction Fracture of distal fibula History of elevated prostate specific antigen (PSA) Recurrent colitis due to Clostridium difficile Surgical History H/O right inguinal hernia repair (2018) History of ankle surgery (2014) S/P cataract surgery (2017) Family History Mother Colorectal cancer Diabetes Father Colorectal cancer Denies family history of Ovarian cancer Prostate cancer Coronary heart disease Breast cancer Social History Smoking Status: Never smoker Age Quit Using Tobacco: 32; Second Hand Exposure: No; Hx Alcohol Use: No Hx Substance Use: No Preferred Language: French Communication Ability: Effective 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 Is good strength testing lower extremities. He is able to sit up without discomfort. Results & Data ([facility]) Vital Signs (Past 12 Hours) Vital Signs Temp Pulse Pulse Resp BP Pulse Ox O2 Del Method 09/29/22 07:37 36.8 C 81 18 134/74 93 Room Air 09/28/22 22:20 72 09/29/22 03:56 36.7 C 74 18 119/58 L 95 Room Air 09/28/22 23:07 36.9 C 77 22 122/65 95 Room Air (1) Closed T9 spinal fracture Encounter type: initial encounter Fracture morphology: unspecified fracture morphology Qualified Code(s): S22.079A - Unspecified fracture of T9-T10 vertebra, initial encounter for closed fracture
--- NOTE | 2022-09-29 10:17 | CT Scan Report ---
CT thoracic spine wo con CLINICAL HISTORY: back pain TECHNIQUE: Multidetector row helical CT of the thoracic spine was performed without administration of intravenous contrast. Coronal and sagittal reformations were obtained. Automated dose lowering techn iques and/or adjustment according to patient size were utilized for this exam. CT DOSE: 1461.35 mGy.cm Comparison: Comparison is made to CT chest 09/27/2022 FINDINGS: Again noted is an acute fracture along the superior endplate of T9 with widening of the T8-T9 disc sp kade. In addition there is a fracture of the right superior articular facet of T9. Degenerative change s are seen and there are multilevel compression deformities in the thoracic spine, unchanged from symone or exam Vertebral body alignment is within normal limits. Bilateral atelectasis is seen with underlyi ng trace pleural effusions. IMPRESSION: 1. Redemonstration of a fracture of the superior endplate of T9 with widening of the T8-T9 disc spac e as well as a fracture of the right superior articular facet. The endplate fracture may extend to th e anterior osteophyte and posterior third of the vertebral body. This likely represents a 3 column fr acture. 2. Additional chronic appearing compression deformities are noted. ACT 112: Negative or not required by law. Electronically signed by: Carlos Alvarez M.D. 09/29/2022 10:16 AM
--- NOTE | 2022-10-04 21:06 | Discharge Summary ---
Date of Service September 29, 2022 Admission HPI Per Admitting Provider This patient is a 82 year old male with a past medical history of HTN, dyslipidemia, BPH and paroxsymal A Fib s/p ablation in April 2022 on Xarelto who presented to [facility] ED today s/p a fall and back pain and was found to have a fracture of T8/9. Patient states earlier today he was in his shop and fixing the seat of his tree stand. He tells me that he repaired the seat and then was trying to test out the seat. The repaired seat was on a platform that was about 2 feet above the ground and when he sat upon the seat it was unstable and he fell backwards and hit his thoracic area of his back onto his work bench. He denies any LOC. He states that he layed on the ground for about 30 minutes until he was able to calm himself down and get over to a chair to sit. He then was able to get back into the house and tell his what had happened. He states that his and son convinced him to come to the ER for evaluation. He denies any chest pain, SOB, vomiting, head injury, paresthesias, anesthesias, bowel or bladder problems or dysfunction. He does admit to pain in the thoracic area when he hit his back and also some nausea when he fell but states the nausea resolved and he is just hungry now and wants something to eat. Patient tells me that he tried taking some tylenol prior to coming to the ER without any relief. He denies any pain with breathing bu does states that he has back discomfort with moving around. Patient was evaluated in the ER and had CT of the head, cervical spine, abdomen and pelvis pelvis without significant traumatic injury noted. On the CT of the chest evidence of a T8-T9 fracture possibly involving all 3 columns was noted. The ER physician discussed the patient and CT with Dr. Bain of the orthopedic spine service here who recommended we admit the patient keep her on bedrest he will evaluate the patient and likely recommend brace. He would recommend holding Xarelto. We will admit patient and give him a heart healthy diet for dinner and then NPO after midnight until seen by ortho. He will be on strict bedrest, IVFs after midnight He is able to take the rest of his po home medications besides the Xareto. Principal Diagnosis Closed T9 spinal fracture Discharge Exam Constitutional: WD/WN, vitals as above Eyes: PERRL, conjunctivae normal, anicteric sclerae ENMT: external ear and nose normal, oropharynx normal Neck: trachea midline, no thyromegaly Respiratory: normal respiratory effort, lungs clear to auscultation Cardiovascular: Rate/Rhythm: regular rate and regular rhythm Extremities: no edema Gastrointestinal (Abdomen): normal bowel sounds, soft, nontender, no hepatosplenomegaly Musculoskeletal: Extremities: extremities normal to inspection slight tenderness to palpation over thoracic spine and mild tenderness to palpation of ribs, no step off appreciated Moves all extremities Did not assess spinal ROM secondary to known fracture Neurologic: patellar DTR's 2+ bilat, sensation intact and PERRL, EOMI, accommodation nl, no face palsy, no dysarthria Psychiatric: A+Ox3, euthymic affect Discharge Data Allergies Allergy/AdvReac Type Severity Reaction Status Date / Time No Known Drug Allergies Allergy Unknown . Verified 09/27/22 16:37 Consultations 09/27/22 16:24 ED Decision to Admit Stat 09/28/22 15:48 Consult Orthopedic Surgery Routine Ordered Studies 09/27/22 14:23 CT abd pelvis IV con only Stat CT cervical spine wo con Stat CT chest diagnostic w con Stat CT head/brain wo con Stat 09/29/22 07:36 CT thoracic spine wo con Urgent Hospital Course (1) Closed T9 spinal fracture: Admit patient evaluated by ortho. No need for surgery at this time. Patient to be discharged on COOK HELPER DESSERT brace, followup with ortho as an outpatient. Patient will be placed on tylenol. (2) Fall: see above (3) Paroxysmal atrial fibrillation: Xarelto held until evaluated by ortho (4) Hypertension: continue home medications (5) Benign prostatic hyperplasia with urinary obstruction: continue home medications (6) Hyperlipidemia: continue home medications Total Time Total Time Spent Total Time Spent (In Minutes): 35 Discharge Plan Discharge Items Patient Disposition: Home - Self-Care Reason For Visit: FALL,THORACIC FX Discharge Diagnosis: fall thoracic fracture Activity: Resume your previous activity Non-emergency contact: Primary Care Provider Call non-emergency contact if: you have any medication questions Follow-up/Referrals: Declan Linder MD [Primary Care Provider] - Diet: Heart Healthy Addtl Attending Provider Instructions: Mr. [place], It was a pleasure taking care of you. Thank goodness that you did not require any surgery during your hospital stay. Dr. Bain however recommends that you wear the brace when out of bed at all times. It may be safer to just use the urinal for evening breaks that your nurse will provide right before you. I also recommend a followup with Dr. Bain in 2 weeks. Please continue taking pain medicine as needed. If your pain worsens, please call your PCP for more pain medicine. You may also call the hospital transmission system operator and ask for me as I will be working tomorrow. Go Vote! Best regards, Robert Camarillo Pending Studies at Discharge: No Stand-Alone Forms: My [facility] iCrossing, Smoking Cessation Medications and DC Order Prescriptions: Continued Xarelto 20 mg tablet 20 mg PO QPM losartan 50 mg tablet 50 mg PO HS atorvastatin [Lipitor] 40 mg tablet 40 mg PO HS metoprolol succinate 50 mg tablet extended release 24 hr 50 mg PO HS tamsulosin [Flomax] 0.4 mg capsule 0.4 mg PO QPM finasteride 5 mg tablet 5 mg PO HS Discharge Orders: Discharge Order (Routine); Ordered 09/29/22 Ordered By: Robert Camarillo Admission Data Admit Date/Time: 09/27/22 17:33 Attending Provider: Robert Camarillo Admit Provider: Robert Camarillo Primary Care Provider: Declan Linder Other Providers: Robert Camarillo ; Dada Bain Other Interventions: Discharge Summary Assessment (RN) Last Done: 09/29/22 15:00 Coding Level of Care Code D/C DAY MANAGEMENT >30 MINS Diagnoses Closed T9 spinal fracture S22.079A Encounter type: initial encounter Fracture morphology: unspecified fracture morphology Fall W19.XXXA Encounter type: initial encounter Paroxysmal atrial fibrillation I48.0 Hypertension I10 Benign prostatic hyperplasia with urinary obstruction N40.1; N13.8 Hyperlipidemia E78.5
== END 2022-09-29 15:33 | disposition home or self-care (01) | DRG 552 ==
LOC: ED 13:45 → 2E 17:33